=== PATIENT | male | born 1950 | race Caucasian/White ===

== ENCOUNTER → 2016-12-06 | Outpatient (CLI) | payer OTHER ==
[~2016-12-06] MED LIST: ACET-1256 PO; CLR10 PO; DIAZ-165 PO; DVN/160 PO; OMEP20TA PO; PSYL55.43 PO
[2016-12-06 14:31] VITALS: BP 152/92; PULSE 68; TEMP 36.5; O2SAT 97
--- NOTE | 2016-12-07 07:27 | Radiation Oncology Follow-Up ---
Radiation Oncology Follow-Up Date of Visit Dec 06, 2016. 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 Denies any problems with recurrent headaches or facial discomfort. No problems with recurrent sinus infections. He has no difficulty with the sense of smell or taste. He does intimately has soreness of the throat. For soreness of sure that he uses saltwater gargles. Following the completion of treatment he had lost approximately 20 pounds. He regained the weight that had been lost. Through diet and exercise he has lost weight again. He is doing this to try to help his blood pressure. He had a MRI 12/07/2015 in follow-up. This was a normal examination. He also follows with ENT at [facility]. He did have a change of insurance is going to be changing all of his doctors to [facility]. These appointments have been set up. Allergies Coded Allergies: No Known Allergies (Unverified , 06/05/12) Home Medications Scheduled Loratadine (Claritin), 10 MG PO DAILY Omeprazole (Omeprazole), 20 MG PO DAILY Psyllium (Metamucil Powder), 1 TBS PO DAILY Valsartan (Diovan), 160 MG PO DAILY Scheduled PRN Acetaminophen (Tylenol), 2 TAB PO Q6 PRN for Headache or Pain Diazepam (Valium), 5 MG PO DIRECTED PRN Review of Systems Gastrointestinal: Symptoms: WNL GI Comments: "takes metamucil daily for loose stools " Oral: Symptoms: Mild Soreness Other Oral Symptoms: " I always have sores in the back of my throat " Respiratory: Symptoms: WNL Other Respiratory: " I feel like I am getting a cold " Urinary: Symptoms: Nocturia Comments: nocturia times 1 Skin: Symptoms: No Problems Physical Exam Vital Signs Date Time Temp Pulse Resp B/P (MAP) Pulse Ox O2 Delivery O2 Flow Rate FiO2 12/06/16 14:31 36.5 68 16 152/92 97 Pain: Pain Onset: just after the radiation finished Pain Duration: gets worse at times Side: Bilateral Pain Location: throat Patient Pain Scale: 0 - 10 Initial Pain Intensity: 0.0 Pain Description: Soreness Additional Comments: " just in that spot, right side of throat General Appearance: no apparent distress Eyes: normal inspection, PERRL ENT: normal ENT inspection, hearing grossly normal, TMs normal, pharynx normal Neck: supple, no adenopathy, thyroid normal Respiratory/Chest: lungs clear, no respiratory distress, no accessory muscle use Cardiovascular: regular rate, rhythm, no gallop, no murmur Extremities: no pedal edema Neurologic/Psychiatric: no motor/sensory deficits, alert, normal mood/affect Skin: warm/dry Assessment & Plan Plan: Due to insurance reasons he is changing all of his physicians. He says he Dr. Gonzalez in December 14. He was are seen at Dr. Jef Childs's office. He is going to see Dr. Leiva. We asked him to return to our office in 1 year. He may call if he has any questions or concerns in the interim. Total Time In Follow-Up I spent 20 minutes. He to the patient performing examination. I spent 15 minutes reviewing information in completing this note. Copy To Tony Leiva MD; Jef Childs M.D.; Miguel Gonzalez MD
== END | disposition home or self-care (01) ==
LOC: C.ONC 14:12
PROVIDERS: ATTEND Physician Assistant Medical
DX: Z08 Encounter for follow-up examination after completed treatment for malignant neoplasm (principal); Z92.3 Personal history of irradiation; Z85.89 Personal history of malignant neoplasm of other organs and systems

== ENCOUNTER → 2017-01-18 | Outpatient (CLI) | payer OTHER ==
[2017-01-18 11:00] LABS: ALT/SGPT 29 U/L (12-78); AST/SGOT 18 U/L (15-37); BLOOD UREA NITROGEN 12 mg/dl (7-18); BUN/CREATININE RATIO 13.6 (10-20); CALCIUM 9.4 mg/dl (8.5-10.1); CARBON DIOXIDE 30 mmol/L (21-32); CHLORIDE 100 mmol/L (98-107); CHOLESTEROL 219 mg/dl (0-200); CREATININE 0.91 mg/dl (0.60-1.40); GLUCOSE 91 mg/dl (70-99); POTASSIUM 4.2 mmol/L (3.5-5.1); SODIUM 135 mmol/L (136-145); TRIGLYCERIDES 77 mg/dl (0-150); VERY LOW DENSITY LIPOPROT CALC 15 mg/dl
[2017-01-18 11:05] LABS: ALB/GLOB RATIO 1.5 (0.9-2); ALKALINE PHOSPHATASE 69 U/L (45-117); CHOLESTEROL/HDL RATIO 3.8; HDL CHOLESTEROL 57 mg/dl; LDL CHOLESTEROL CALCULATED 147 mg/dl
== END | disposition home or self-care (01) ==
LOC: C.LABBC 08:38
PROVIDERS: ATTEND Physician Assistant Medical
DX: N40.0 Benign prostatic hyperplasia without lower urinary tract symptoms (principal); E78.5 Hyperlipidemia, unspecified

== ENCOUNTER → 2018-02-08 | Outpatient (CLI) | payer OTHER ==
[~2018-02-08] MED LIST changes: -PSYL55.43 PO
[2018-02-08 10:40] LABS: BASO % 0.2 %; BASO ABS # 0.01 K/uL (0-0.2); EOS % 1.1 %; EOS ABS # 0.05 K/uL (0-0.5); HEMATOCRIT 44.2 % (42-52); HEMOGLOBIN 15.4 g/dL (14.0-18.0); IG# 0.01 K/uL (0.00-0.02); LYMPH % 29.4 %; LYMPH ABS # 1.36 K/uL (1.2-3.4); MEAN CELL VOLUME 87.9 fL (80-100); MEAN CORPUSCULAR HEMOGLOBIN 30.6 pg (25-34); MEAN CORPUSCULAR HGB CONC 34.8 g/dl (32-36); MEAN PLATELET VOLUME 9.4 fL (7.4-10.4); MONO ABS # 0.37 K/uL (0.11-0.59); NEUT % 61.1 %; NEUT ABS # 2.82 K/uL (1.4-6.5); PLATELET COUNT 211 K/uL (130-400); RED CELL DISTRIBUTION WIDTH CV 12.7 % (11.5-14.5); RED CELL DISTRIBUTION WIDTH SD 40.3 fL (36.4-46.3); WHITE BLOOD COUNT 4.62 K/uL (4.8-10.8)
[2018-02-08 11:05] LABS: ALKALINE PHOSPHATASE 75 U/L (45-117); ALT/SGPT 30 U/L (12-78); AST/SGOT 23 U/L (15-37); BLOOD UREA NITROGEN 13 mg/dl (7-18); CALCIUM 8.2 mg/dl (8.5-10.1); CARBON DIOXIDE 27 mmol/L (21-32); CREATININE 0.86 mg/dl (0.60-1.40); GLUCOSE 87 mg/dl (70-99); SODIUM 135 mmol/L (136-145); TOTAL PROTEIN 7.2 gm/dl (6.4-8.2)
== END | disposition home or self-care (01) ==
LOC: C.LAB1850 08:52
PROVIDERS: ATTEND Internal Medicine
DX: Z00.00 Encounter for general adult medical examination without abnormal findings (principal); I10 Essential (primary) hypertension; E78.5 Hyperlipidemia, unspecified; R35.0 Frequency of micturition

== ENCOUNTER → 2018-02-14 | Outpatient (CLI) | payer OTHER ==
[2018-02-14 12:28] LABS: BLOOD UREA NITROGEN 12 mg/dl (7-18); CALCIUM 8.8 mg/dl (8.5-10.1); CARBON DIOXIDE 27 mmol/L (21-32); CREATININE 0.99 mg/dl (0.60-1.40); GLUCOSE 99 mg/dl (70-99); POTASSIUM 4.2 mmol/L (3.5-5.1); SODIUM 134 mmol/L (136-145)
== END | disposition home or self-care (01) ==
LOC: C.LAB1850 11:20
PROVIDERS: ATTEND Internal Medicine
DX: E78.5 Hyperlipidemia, unspecified (principal); E83.51 Hypocalcemia